=== PATIENT | male | born 1990 | race African-American/Black ===

== ENCOUNTER 2022-08-07 13:21 | Emergency (ER) | payer OTHER, SELFPAY ==
--- NOTE | 2022-08-07 13:19 | ECG_ITS ---
APPROVED REPORT Exam: Resting ECG HR:104 bpm ECG Measurements Heart Rate [address] 140 P 68 QRSd 98 QRS -11 QT 345 T 57 QTc 405 Conclusion SINUS TACHYCARDIA POSSIBLE RIGHT VENTRICULAR CONDUCTION DELAY [RSR (QR) IN V1/V2] ABNORMAL RHYTHM ECG UNCONFIRMED REPORT Electronically signed by : Keith Cameron MD 08/08/2022 09:08:49
[2022-08-07 13:23] VITALS: BP 151/85; PULSE 104; RESP 13; TEMP 36.5; O2SAT 99; BMI 26.0
[2022-08-07 13:30] VITALS: BP 150/88; PULSE 100; RESP 17; O2SAT 99
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
--- NOTE | 2022-08-07 13:39 | XR_ITS ---
PROCEDURE INFORMATION: Exam: XR Chest Exam date and time: 08/07/2022 1:57 PM Age: 32 years old Clinical indication: Pain; Chest pressure; Additional info: Chest pain TECHNIQUE: Imaging protocol: Radiologic exam of the chest. Views: 1 view. COMPARISON: No relevant prior studies available. FINDINGS: Lungs: Unremarkable for portable technique. No consolidation. Pleural spaces: Unremarkable. No pleural effusion. No pneumothorax. Heart/Mediastinum: Unremarkable. No cardiomegaly. Bones/joints: Unremarkable for age. IMPRESSION: Negative portable chest.
[2022-08-07 14:00] VITALS: BP 141/87; PULSE 101; RESP 17; O2SAT 99
[2022-08-07 14:13] LABS: Basophils # 0.1 K/mm3 (0-0.2); Basophils % 0.9 % (0.1-2.0); Eosinophils # 0.1 K/mm3 (0.0-0.4); Hematocrit 43.5 % (42.0-52.0); Hemoglobin 14.6 g/dL (14.1-18.0); Lymphocytes # 2.2 K/mm3 (0.7-4.5); Lymphocytes % 40.2 % (10-50); Mean Corpuscular HGB Conc 33.5 g/dL (31.8-35.4); Mean Corpuscular Hemoglobin 28.6 pg (27.0-31.2); Mean Corpuscular Volume 85.3 fl (80-94); Mean Platelet Volume 7.2 fl (7.4-10.4); Monocytes # 0.5 K/mm3 (0.1-1.0); Monocytes % 8.8 % (1.7-9.3); Neutrophils # 2.7 K/mm3 (1.8-7.8); Platelet Count 391 K/mm3 (142-424); Red Cell Distribution Width 13.4 % (11.5-17.5); White Blood Count 5.6 K/mm3 (4.8-10.8)
[2022-08-07 14:18] LABS: Alanine Aminotransferase 26 U/L (12-78); Albumin/Globulin Ratio 1.3 (1.1-1.8); Alkaline Phosphatase 120 U/L (38-126); Anion Gap 7.8 mEq/L (5-15); Aspartate Amino Transferase 34 U/L (17-59); Bilirubin,Total 0.5 mg/dl (0.2-1.3); Blood Urea Nitrogen 13 mg/dl (9-20); Carbon Dioxide 28 mmol/L (22.0-30.0); Chloride 107 mmol/L (98-107); Creatinine Clearance Estimated 182 mL/min (50-200); Estimated Glomerular Filt Rate 131 ml/min (>60); GFR (African American) 158 ML/MIN (>60); Globulin 3.1 g/dL (1.3-3.2); Glucose 93 mg/dl (74-100); Potassium 3.8 mmoL/L (3.5-5.1); Sodium 139 mmol/L (136-145); Total Protein,Serum 7.1 g/dl (6.3-8.2)
[2022-08-07 14:30] LABS: Troponin I < 0.01 ng/ml (0.00-0.034)
[2022-08-07 14:33] VITALS: BP 141/87; PULSE 101; RESP 17; TEMP 36.5; O2SAT 99
== END 2022-08-07 14:41 | disposition left against medical advice (07) ==
PROVIDERS: Emergency Provider Student in an Organized Health Care Education/Training Program
DX: R07.89 Other chest pain (principal); R42 Dizziness and giddiness; E03.9 Hypothyroidism, unspecified; F17.210 Nicotine dependence, cigarettes, uncomplicated
CPT/HCPCS: 71045; 80053; 84484; 85025; 93005; 96360; 99285

== ENCOUNTER 2022-10-08 18:33 | Emergency (ER) | payer OTHER, SELFPAY ==
[2022-10-08 18:40] VITALS: BP 159/90; PULSE 97; RESP 18; TEMP 36.6; O2SAT 100; BMI 26.4
--- NOTE | 2022-10-08 18:52 | EXP.UTC ---
Discharge Plan Disposition Patient Disposition: Still a Patient Condition: Fair Referrals Follow up/Referrals: Provider,MD Marilou [Primary Care Provider] - See instructions Instructions Patient Instructions: DI for Acute Abdominal Pain Discharge ED Provider: Bobbi Benavidez [facility] General Chief complaint: Abdominal Pain Stated complaint: vomiting, shaking, abd pain, PHELAN Mode of Arrival: Ambulatory Source of Information: Patient Limitations: No Limitations Time Seen by Provider: 10/08/22 18:52 Description of Symptoms (Recalled from Triage Doc. by RN): PATIENT C/O VOMITING, ABDOMINAL PAIN, WEAKNESS AND SHAKING SINCE THIS MORNING HEENT Symptoms (Recalled from RN notes): No Resp Symptoms (Recalled from RN notes): No Skin Symptoms (Recalled from RN notes): No MS Symptoms (Recalled from RN notes): No Functional Status (Recalled from RN notes): WNL History of Present Illness Provider Complaint: Girl friend states that he woke up this morning vomiting and then started having severe abdominal pain, weakness and shaking all over States that he hasnt been able to keep anything down today and unable to stand up straight due to the abdominal pain so this evening he was still having the pain and vomiting so she brought him in Related Data Allergies Allergy/AdvReac Type Severity Reaction Status Date / Time iodine Allergy Agitated Verified 08/07/22 13:35 Worker's Comp Is this a Worker's Comp case?: No [facility] Disclaimer: The information contained in this section may have been updated after the patient was seen, as this information can be updated by other users. Medical History (Updated 08/07/22 @ 14:38 by Gus Kennedy MD) Hyperthyroidism Social History (Updated 08/07/22 @ 14:39 by Gus Kennedy MD) Smoking Status: Current every day smoker alcohol intake: current current occupational status: other Travel in the last 8 weeks: None ROS Obtained: Yes All systems reviewed & no additional complaints except as documented and Yes Systems reviewed as appropriate & no additional complaints except as documented Constitutional Constitutional: Reports system reviewed and no additional complaints, except as documented, Reports as per HPI and Reports weakness ENT Ears, Nose, Mouth, and Throat: Reports system reviewed and no additional complaints, except as documented and Reports as per HPI Cardiovascular Cardiovascular: Reports system reviewed and no additional complaints, except as documented and Reports as per HPI Respiratory Respiratory: Reports system reviewed and no additional complaints, except as documented and Reports as per HPI Gastrointestinal Gastrointestingal: Reports system reviewed and no additional complaints, except as documented, as per HPI, abdominal pain, nausea and vomiting Musculoskeletal Musculoskeletal: Reports system reviewed and no additional complaints, except as documented and Reports as per HPI Neurologic Neurologic: Reports system reviewed and no additional complaints, except as documented, Reports as per HPI, Reports weakness and Reports other (shaking all over at times) Physical Exam General General appearance: alert Comment: Patient laying on floor holding stomach reports unable to sit up Respiratory Respiratory exam: Present normal lung sounds bilaterally; Absent respiratory distress or wheezes Cardiovascular Cardiovascular exam: Present regular rate and normal rhythm Abdominal Exam Abdominal exam: Present tenderness Neurological Exam Neurological exam: Present alert and oriented X3 Medical Decision Making Yadiel Inquiry Pt receiving controlled substance: No Yadiel was queried for this patient: No Vital Signs: 10/08/22 18:40 Temperature 97.9 F Temperature Source Oral Pulse Rate [Right Brachial] 97 H Respiratory Rate 18 Blood Pressure [Right Arm] 159/90 H Blood Pressure Mean [Right Arm] 113 Blood Pressure Source [Right Arm] Automatic Cuff Blood Pressure Position [Right Ar
--- NOTE | 2022-10-08 18:54 | PC.NURSE ---
PATIENT SENT TO ER PER Clarke EDDY APRN FOR FURTHER EVALUATION. REPORT GIVEN TO Favian JORDAN RN BY Clarke EDDY APRN
[2022-10-08 19:00] VITALS: BP 128/81; PULSE 94; RESP 16; TEMP 36.6; O2SAT 100; BMI 25.8
--- NOTE | 2022-10-08 19:01 | PC.NURSE ---
Dr. Molina at [facility]
--- NOTE | 2022-10-08 19:05 | HMH.EDGENADL ---
Discharge Plan Disposition Patient Disposition: Home, Self-Care Condition: Fair Prescriptions Prescriptions: New ondansetron 4 mg tablet,disintegrating 4 mg PO Q8H PRN (Reason: nausea and vomiting) 4 Days Qty: 12 0RF Referrals Follow up/Referrals: Provider,Referral, [Primary Care Provider] - See instructions Activity Restrictions/Add. Instructions Additional Instructions/Restrictions: At this time was felt you are safe to be discharged home. If new or worsening symptoms please do not hesitate to return the emergency department. Please take your medication as prescribed. Clinical Impressions Clinical Impression: Abdominal pain Instructions Patient Instructions: DI for Acute Abdominal Pain Discharge ED Provider: Cade Molina General Adult HPI General Chief complaint: Abdominal Pain Stated complaint: vomiting, shaking, abd pain, PHELAN Time Seen by Provider: 10/08/22 18:52 Mode of Arrival: Ambulatory Source of Information: Patient Limitations: No Limitations Description of Symptoms (Recalled from ER Triage Doc. by RN): PATIENT C/O VOMITING, ABDOMINAL PAIN, WEAKNESS AND SHAKING SINCE THIS MORNING History of Present Illness HPI narrative: Patient is a 32-year-old male with past medical history of overactive thyroid who presents emergency department for evaluation of epigastric pain and stomach pain. Onset was acute over the last 24 hours, associated vomiting that is nonbloody. No diarrhea. No cough. Symptoms are moderate to severe in intensity. No other acute complaints at this time. Related Data Previous Rx's Medication Instructions Recorded ondansetron 4 mg disintegrating 4 mg PO Q8H PRN nausea and 10/08/22 tablet vomiting 4 days #12 tabs Allergies Allergy/AdvReac Type Severity Reaction Status Date / Time iodine Allergy Agitated Verified 08/07/22 13:35 [facility] Disclaimer: The information contained in this section may have been updated after the patient was seen, as this information can be updated by other users. Medical History (Updated 10/08/22 @ 19:59 by Cade Molina MD) Hyperthyroidism Social History (Updated 08/07/22 @ 14:39 by Gus Kennedy MD) Smoking Status: Current every day smoker alcohol intake: current current occupational status: other Travel in the last 8 weeks: None ROS Obtained: Yes Systems reviewed as appropriate & no additional complaints except as documented Physical Exam General General appearance: alert and other (Appearing in pain in bed.) Head Head exam: atraumatic and normocephalic Eye Eye exam: Present PERRL and EOMI ENT ENT exam: Present mucous membranes moist Neck Neck exam: Present normal inspection Chest Chest inspection: Present normal inspection and symmetric chest wall rise Respiratory Respiratory exam: Present normal lung sounds bilaterally; Absent respiratory distress Cardiovascular Cardiovascular exam: Present regular rate and normal rhythm Abdominal Exam Abdominal exam: Present soft and tenderness (Left epigastric region); Absent guarding or rebound Extremities Exam Extremities exam: Present normal inspection Neurological Exam Neurological exam: Present alert and oriented X3 Psychiatric Psychiatric exam: Present normal affect Skin Skin exam: Present warm and dry Medical Decision Making Yadiel Inquiry Pt receiving controlled substance: No Vital Signs: 10/08/22 18:40 10/08/22 19:00 10/08/22 19:30 Temperature 97.9 F 98 F Temperature Source Oral Oral Pulse Rate 91 H Pulse Rate [Right Brachial] 97 H 94 H Respiratory Rate 18 16 Blood Pressure 152/64 H Blood Pressure [Right Arm] 159/90 H 128/81 Blood Pressure Mean [Right Arm] 113 96 Blood Pressure Source [Right Arm] Automatic Cuff Blood Pressure Position [Right Arm] Sitting 02 Sat by Pulse Oximetry 100 100 98 Oxygen Delivery Method Room Air Room Air Room Air 10/08/22 19:52 Temperature Temperature Source Pulse Rate Pulse Rate [R
[2022-10-08 19:17] LABS: Basophils % 0.3 % (0.1-2.0); Eosinophils # 0.1 K/mm3 (0.0-0.4); Hematocrit 48.6 % (42.0-52.0); Hemoglobin 16.6 g/dL (14.1-18.0); Lymphocytes # 0.8 K/mm3 (0.7-4.5); Lymphocytes % 16.4 % (10-50); Mean Corpuscular HGB Conc 34.1 g/dL (31.8-35.4); Mean Corpuscular Hemoglobin 28.6 pg (27.0-31.2); Mean Platelet Volume 7.3 fl (7.4-10.4); Monocytes # 0.2 K/mm3 (0.1-1.0); Monocytes % 3.6 % (1.7-9.3); Neutrophils % 78.7 % (37.0-80.0); Platelet Count 423 K/mm3 (142-424); Red Blood Count 5.79 M/mm3 (4.60-6.20); Red Cell Distribution Width 13.7 % (11.5-17.5); White Blood Count 5.1 K/mm3 (4.8-10.8)
--- NOTE | 2022-10-08 19:18 | ECG_ITS ---
APPROVED REPORT Exam: Resting ECG HR:94 bpm ECG Measurements Heart Rate 94 AXES NH 146 P 75 QRSd 101 QRS 15 QT 372 T 72 QTc 423 Conclusion SINUS RHYTHM POSSIBLE RIGHT ATRIAL ENLARGEMENT [0.25mV P-WAVE] POSSIBLE LEFT ATRIAL ENLARGEMENT [-0.1mV P-WAVE IN V1/V2] POSSIBLE RIGHT VENTRICULAR CONDUCTION DELAY [RSR (QR) IN V1/V2] ST ELEVATION, PROBABLY EARLY REPOLARIZATION [ST ELEVATION WITH NORMALLY INFLECTED T-WAVE] MODERATE ST DEPRESSION [0.05+ mV ST DEPRESSION] ABNORMAL ECG UNCONFIRMED REPORT Electronically signed by : Keith Cameron MD 10/09/2022 08:32:53
[2022-10-08 19:25] LABS: Chloride 103 mmol/L (98-107); Sodium 139 mmol/L (136-145)
[2022-10-08 19:26] LABS: Potassium 4.6 mmoL/L (3.5-5.1)
[2022-10-08 19:28] LABS: Alanine Aminotransferase 32 U/L (12-78); Alkaline Phosphatase 142 U/L (38-126); Anion Gap 21.6 mEq/L (5-15); Aspartate Amino Transferase 38 U/L (17-59); Bilirubin,Total 0.6 mg/dl (0.2-1.3); Blood Urea Nitrogen 19 mg/dl (9-20); Calcium 9.6 mg/dl (8.4-10.2); Carbon Dioxide 19 mmol/L (22.0-30.0); Creatinine Clearance Estimated 153 mL/min (50-200); Estimated Glomerular Filt Rate 112 ml/min (>60); GFR (African American) 136 ML/MIN (>60); Glucose 87 mg/dl (74-100); Lipase 52 U/L (23-300)
[2022-10-08 19:29] LABS: Albumin Level 4.6 g/dl (3.5-5.0); Albumin/Globulin Ratio 1.3 (1.1-1.8); Globulin 3.6 g/dL (1.3-3.2); Total Protein,Serum 8.2 g/dl (6.3-8.2)
[2022-10-08 19:30] VITALS: BP 152/64; PULSE 91; O2SAT 98
[2022-10-08 19:52] VITALS: BP 152/64; PULSE 94; RESP 17; O2SAT 98
[2022-10-08 20:02] LABS: Troponin I < 0.01 ng/ml (0.00-0.034)
[2022-10-08 20:03] VITALS: BP 108/44; PULSE 89; RESP 17; TEMP 36.8; O2SAT 98
--- NOTE | 2022-10-08 20:14 | PC.NURSE ---
Dr. Molina at [facility]
== END 2022-10-08 20:29 | disposition home or self-care (01) ==
LOC: UTC 18:45 → ER 18:56
PROVIDERS: Emergency Provider Emergency Medicine
DX: R10.13 Epigastric pain (principal); R11.10 Vomiting, unspecified; F17.200 Nicotine dependence, unspecified, uncomplicated
CPT/HCPCS: 80053; 83605; 83690; 84484; 85025; 93005; 96360; 96374; 96375; 99285; J2405

== ENCOUNTER 2022-12-30 17:24 | Emergency (ER) | payer OTHER, SELFPAY ==
[2022-12-30 17:26] VITALS: BP 137/95; PULSE 119; RESP 18; TEMP 37.1; O2SAT 94; BMI 22.8
--- NOTE | 2022-12-30 17:46 | EXP.UTC ---
Discharge Plan Disposition Patient Disposition: Home, Self-Care Condition: Good Prescriptions Prescriptions: New methimazole 5 mg tablet 5 mg PO BID Qty: 20 0RF No Action ondansetron 4 mg tablet,disintegrating 4 mg PO Q8H PRN (Reason: nausea and vomiting) 4 Days Qty: 12 0RF Referrals Follow up/Referrals: Provider,Referral, [Primary Care Provider] - See instructions Activity Restrictions/Add. Instructions Additional Instructions/Restrictions: Drink plenty of fluids. Take the medications as directed. Follow up with your regular doctor for further lab testing and medication adjustment. GO TO THE ER FOR ANY WORSENING SYMPTOMS Clinical Impressions Clinical Impression: Hyperthyroidism Instructions Patient Instructions: DI for Hyperthyroidism, Methimazole Discharge ED Provider: Ayden Curran [facility] General Stated complaint: neck pain, shaky, weak Time Seen by Provider: 12/30/22 17:46 History of Present Illness Provider Complaint: He has a history of hyperthyroidism. He was prescribed tapazole 5 mg po bid for this in the past. He states he did great after starting that medication, but then he went to retirement. He was given the medication while in retirement and he did fine with it there also. Once he got out, he no longer had a medical provider to refill his medication. So, he ran out about 1 month ago. He is here today stating that he feels very weak because of his hyperthyroidism. Related Data Previous Rx's Medication Instructions Recorded ondansetron 4 mg disintegrating 4 mg PO Q8H PRN nausea and 10/08/22 tablet vomiting 4 days #12 tabs methimazole 5 mg tablet 5 mg PO BID #20 tabs 12/30/22 Allergies Allergy/AdvReac Type Severity Reaction Status Date / Time iodine Allergy Agitated Verified 08/07/22 13:35 [facility] Disclaimer: The information contained in this section may have been updated after the patient was seen, as this information can be updated by other users. Medical History Hyperthyroidism Social History Smoking Status: Current every day smoker alcohol intake: current current occupational status: other Travel in the last 8 weeks: None ROS Obtained: Yes All systems reviewed & no additional complaints except as documented Constitutional Constitutional: Denies chills and Denies fever(s) Eyes Eyes: Denies eye discharge ENT Ears, Nose, Mouth, and Throat: Denies dizziness, Denies otalgia and Denies sore throat Cardiovascular Cardiovascular: Denies chest pain Respiratory Respiratory: Denies shortness of breath, Denies chest congestion, Denies cough, Denies stridor and Denies wheezing Gastrointestinal Gastrointestingal: Denies nausea or vomiting Musculoskeletal Musculoskeletal: Reports system reviewed and no additional complaints, except as documented and Denies arthralgias Integumentary/Breasts Skin/Breast: Denies rash Neurologic Neurologic: Denies dizziness and Denies paresthesias Allergic/Immunologic Allergic/Immunologic: Denies wheezing Physical Exam General General appearance: alert and in no apparent distress Head Head exam: atraumatic, normocephalic and normal inspection Eye Eye exam: Present normal appearance, PERRL and EOMI ENT ENT exam: Present normal exam, normal oropharynx, mucous membranes moist, TM's normal bilaterally and normal external ear exam Neck Neck exam: Present normal inspection, full ROM and trachea midline; Absent meningismus or lymphadenopathy Chest Chest inspection: Present normal inspection and symmetric chest wall rise; Absent tenderness Respiratory Respiratory exam: Present normal lung sounds bilaterally; Absent respiratory distress Cardiovascular Cardiovascular exam: Present regular rate and normal rhythm; Absent JVD Abdominal Exam Abdominal exam: Present soft and normal bowel sounds; Absent distention, tenderness or guarding
[2022-12-30 18:41] VITALS: BP 137/95; PULSE 119; RESP 18; TEMP 37.1; O2SAT 94
== END 2022-12-30 18:42 | disposition home or self-care (01) ==
PROVIDERS: Emergency Provider Nurse Practitioner Family
DX: E05.90 Thyrotoxicosis, unspecified without thyrotoxic crisis or storm (principal); R53.1 Weakness; F17.210 Nicotine dependence, cigarettes, uncomplicated
CPT/HCPCS: 99204; 99212; G0463